=== PATIENT | female | born 1995 | race Caucasian/White ===

== ENCOUNTER 2021-01-05 17:56 | Emergency (ER) | payer OTHER ==
[2021-01-05] MEDS ORDERED: PROTONIX 40 MG IV IV ONE ×2 (20:04→20:46)
[2021-01-05] MEDS ORDERED: GI COCKTAIL 45 ML (Maalox/Lidocaine) PO ONE (20:04)
[2021-01-05 20:22] LABS: Absolute Neutrophil Ct (ANC) 4.19 (1.4-6.9); BASOPHIL % 0.3 % (0.0-0.4); Basophil (Absolute #) 0.02 (0-0.4); Eosinophil % 2.1 % (0.00-5.0); Eosinophil (Absolute #) 0.15 (0-0.5); Hematocrit 40.4 % (35-47); Hemoglobin 12.9 gm/dl (12.0-16.0); Lymphocyte (Absolute #) 1.92 (1.0-4.6); Lymphocytes % 26.7 % (24.0-44.0); Mean Corpuscular Hemoglobin 29.4 pg (26-32); Mean Corpuscular Hgb Concent. 31.9 g/dl (32-36); Mean Platelet Volume 9.4 fl (7.5-11.0); Monocyte (Absolute #) 0.92 (0.0-1.3); Monocytes % 12.8 % (0.0-12.0); Neutrophil % 58.1 % (36.0-66.0); Platelet Count 308 K/mm3 (150-450); Red Blood Count 4.39 M/mm3 (4.1-5.4); Red Cell Distribution Width 14.2 % (11.5-14.0); White Blood Count 7.2 K/mm3 (4.0-10.5)
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
[2021-01-05 20:28] LABS: ALBUMIN 4.1 g/dL (3.5-5.0); ALKALINE PHOSPHATASE 58 U/L (38-126); BLOOD UREA NITROGEN 17 mg/dL (7-17); CHLORIDE 105 mmol/L (98-107); Carbon Dioxide 25 mmol/L (22-30); Creatinine 1 0.59 mg/dL (0.52-1.04); EST GLOMERULAR FILTRATION RATE > 60.0 ML/MIN; Glucose 71 mg/dL (74-106); LIPASE 182 U/L (23-300); Potassium 3.7 mmol/L (3.5-5.1); SGOT/AST 26 U/L (14-36); SGPT/ALT 22 U/L (0-35); SODIUM 138 mmol/L (137-145); Total Protein 7.3 g/dL (6.3-8.2)
[2021-01-05] MEDS ORDERED: XYLOCAINE HCl Viscous ONE (20:47)
[2021-01-05] MEDS ORDERED: MAALOX ES 30 ML UNIT DOSE ONE (20:47)
[2021-01-05 21:19] VITALS: BP 132/85; PULSE 100; O2SAT 97
== END 2021-01-05 21:28 | disposition home or self-care (01) ==
LOC: ED 17:56
DX: R10.10 Upper abdominal pain, unspecified (principal)
CPT/HCPCS: 36000; 36415; 80053; 83690; 84703; 85025; 96374; 99284; A9270-GY

== ENCOUNTER 2022-07-19 16:24 | Observation (INO) | payer OTHER ==
[2022-07-19 17:04] VITALS: PULSE 98; O2SAT 97
[2022-07-19 18:08] VITALS: BP 126/78
== END 2022-07-19 17:45 | disposition home or self-care (01) ==
LOC: OB 16:24
PROVIDERS: ADMIT Obstetrics & Gynecology; ATTEND Obstetrics & Gynecology
DX: Z34.83 Encounter for supervision of other normal pregnancy, third trimester (principal); Z3A.38 38 weeks gestation of pregnancy
CPT/HCPCS: G0378

== ENCOUNTER 2022-07-21 02:00 | Inpatient (IN) | payer OTHER ==
[2022-07-21] MEDS ORDERED: TUCKS TP PRN (15:00)
[2022-07-21] MEDS ORDERED: LANSINOH 40 GM TOP PRN (15:00)
[2022-07-21 15:47] LABS: Absolute Neutrophil Ct (ANC) 6.02 x10^3/uL (1.4-6.9); BASOPHIL % 0.2 % (0.0-0.4); Basophil (Absolute #) 0.02 x10^3/uL (0-0.4); Eosinophil % 1.5 % (0.00-5.0); Eosinophil (Absolute #) 0.13 x10^3/uL (0-0.5); Hematocrit 30.4 % (35-47); Hemoglobin 9.5 g/dL (12.0-16.0); IMMATURE GRAN # 0.05 x10^3u/L (0.00-0.03); IMMATURE GRAN % 0.6 % (0.00-0.4); Lymphocyte (Absolute #) 1.84 x10^3/uL (1.0-4.6); Lymphocytes % 21.1 % (24.0-44.0); Mean Cell Volume 83.7 fL (78-100); Mean Corpuscular Hemoglobin 26.2 pg (26-32); Mean Corpuscular Hgb Concent. 31.3 g/dL (32-36); Monocyte (Absolute #) 0.67 x10^3/uL (0.0-1.3); Monocytes % 7.7 % (0.0-12.0); Neutrophil % 68.9 % (36.0-66.0); Platelet Count 344 x10^3/uL (150-450); Red Blood Count 3.63 x10^6/uL (4.1-5.4); White Blood Count 8.7 x10^3/uL (4.0-10.5)
[2022-07-21 16:08] LABS: Amphetamine,Urine NEGATIVE (NEGATIVE); Barbiturate,Urine NEGATIVE (NEGATIVE); Benzodiazepine,Urine NEGATIVE (NEGATIVE); Cocaine,Urine NEGATIVE (NEGATIVE); Methadone,Urine NEGATIVE (NEGATIVE); Opiate,Urine NEGATIVE (NEGATIVE); PCP,Urine NEGATIVE (NEGATIVE); THC,Urine NEGATIVE (NEGATIVE)
[2022-07-21 16:51] LABS: ABO TYPING A; RH TYPING NEGATIVE
[2022-07-21 16:52] LABS: Antibody Screen NEGATIVE (NEGATIVE)
[2022-07-21 17:38] LABS: ALBUMIN 3.3 g/dL (3.5-5.0); ALKALINE PHOSPHATASE 130 U/L (38-126); ANION GAP 12.7 MEQ/L (5-15); BLOOD UREA NITROGEN 11 mg/dL (7-17); CHLORIDE 108 mmol/L (98-107); Calcium 9.3 mg/dL (8.4-10.2); Carbon Dioxide 21 mmol/L (22-30); Creatinine 1 0.59 mg/dL (0.52-1.04); EST GLOMERULAR FILTRATION RATE > 60.0 ML/MIN; Glucose 79 mg/dL (74-106); SGOT/AST 29 U/L (14-36); SGPT/ALT 15 U/L (0-35); SODIUM 138 mmol/L (137-145); Total Protein 6.6 g/dL (6.3-8.2); Uric Acid 5.4 mg/dL (2.6-6.0)
[2022-07-21 18:06] LABS: Appearance Clear (Clear); Bacteria Rare /HPF (None Seen); Bilirubin Negative (Negative); Blood Negative (Negative); Epithelial Cells Few /HPF (None Seen); Glucose, Urine Negative (Negative); Hyaline Casts NONE SEEN /LPF (0-2); Ketones Trace (Negative); Leukocyte Esterase Small (Negative); Nitrite Negative (Negative); Protein,Urine Dip Trace (Negative); RBC 0-2 /HPF (0-5); Urobilinogen 0.2 mg/dL (0.2)
[2022-07-21 18:07] LABS: ADD URINE CULTURE? NO (NO)
[2022-07-21 18:53] LABS: Creatinine, Urine Random 136.1 mg/dl; Protein Creatinine Ratio, Ran. 0.09 mg/mg (0.0-0.15)
[2022-07-21] MEDS: TYLENOL EXTRA STRENGTH 500 MG PO PRN (20:06)
[2022-07-21] MEDS ORDERED: Ambien 10 MG PO PRN (20:45)
[2022-07-21] MEDS: MOTRIN 400 MG PO PRN (20:56)
[2022-07-21] MEDS: STADOL 2 MG IV PRN (23:01)
[2022-07-22] MEDS ORDERED: STADOL 2 MG IV PRN
[2022-07-22] MEDS ORDERED: Lactated Ringers 1,000 ML IV ONE
[2022-07-22] MEDS ORDERED: Ephedrine Sulfate 50 MG/ML IV PRN
[2022-07-22] MEDS ORDERED: Zofran 4 MG/2 ML VIAL IV PRN
[2022-07-22] MEDS ORDERED: FENTANYL 2 MCG-BUPIV 0.125%-NS 250 ML Epidur 250 ML EPIDURAL SCH
[2022-07-22] MEDS ORDERED: OMNIPEN 2 GM*** 2 G in Sodium Chloride 100ML MINI-BAG PLUS 100 ML IV ONE ×2
[2022-07-22] MEDS: STADOL 2 MG IV PRN (02:52)
[2022-07-22] MEDS: Lactated Ringers 1,000 ML IV SCH ×2 (03:14→20:37)
[2022-07-22] MEDS ORDERED: XYLOCAINE 1% HCL 20 ML MDV ONE (03:23)
[2022-07-22] MEDS ORDERED: XYLOCAINE 2%/Epi 1:200000 20ML VIAL MPF ONE (03:59)
[2022-07-22] MEDS ORDERED: SUBLIMAZE 100 MCG/2 ML ONE (03:59)
[2022-07-22] MEDS ORDERED: Marcaine 0.5%/Epinephrine 10 ML IJ ONE (04:00)
[2022-07-22] MEDS ORDERED: OMNIPEN 1 GM*** 1 GM in Sodium Chloride 100ML MINI-BAG PLUS 100 ML IV SCH (04:00)
[2022-07-22] MEDS ORDERED: PITOCIN 30 UNITS/ LR 500 ML 500 ML IV ONE (04:05)
[2022-07-22] MEDS ORDERED: OMNIPEN 1 GM ONE (04:10)
[2022-07-22] MEDS ORDERED: Sodium Chloride 100ML MINI-BAG PLUS 100 ML IV ONE (04:10)
[2022-07-22] MEDS ORDERED: PITOCIN 30 UNITS/ LR 500 ML 30 UNITS/500 ML PLAST..BAG IV SCH (08:00)
[2022-07-22] MEDS ORDERED: Dermoplast Spray TP PRN ×2 (08:20→08:45)
[2022-07-22] MEDS ORDERED: FERREX 150 PO SCH (10:00)
[2022-07-22] MEDS: MOTRIN 400 MG PO PRN ×2 (12:48→21:49)
[2022-07-22] MEDS ORDERED: Rhogam Plus 300 MCG IM ONE (15:00)
[2022-07-22] MEDS ORDERED: Adacel Vial IM ONE (15:00)
[2022-07-22 16:28] LABS: Absolute Neutrophil Ct (ANC) 13.23 x10^3/uL (1.4-6.9); BASOPHIL % 0.2 % (0.0-0.4); Basophil (Absolute #) 0.04 x10^3/uL (0-0.4); Eosinophil % 0.3 % (0.00-5.0); Eosinophil (Absolute #) 0.05 x10^3/uL (0-0.5); Hematocrit 31.7 % (35-47); IMMATURE GRAN # 0.08 x10^3u/L (0.00-0.03); IMMATURE GRAN % 0.5 % (0.00-0.4); Lymphocyte (Absolute #) 2.12 x10^3/uL (1.0-4.6); Lymphocytes % 12.9 % (24.0-44.0); Mean Cell Volume 83.4 fL (78-100); Mean Corpuscular Hemoglobin 26.3 pg (26-32); Mean Corpuscular Hgb Concent. 31.5 g/dL (32-36); Mean Platelet Volume 9.4 fL (7.5-11.0); Monocyte (Absolute #) 0.88 x10^3/uL (0.0-1.3); Monocytes % 5.4 % (0.0-12.0); Neutrophil % 80.7 % (36.0-66.0); Platelet Count 296 x10^3/uL (150-450); White Blood Count 16.4 x10^3/uL (4.0-10.5)
[2022-07-22] MEDS: Docusate Sodium 100 MG PO SCH (21:49)
[2022-07-23 05:12] LABS: Absolute Neutrophil Ct (ANC) 8.76 x10^3/uL (1.4-6.9); BASOPHIL % 0.4 % (0.0-0.4); Basophil (Absolute #) 0.05 x10^3/uL (0-0.4); Eosinophil % 1.3 % (0.00-5.0); Eosinophil (Absolute #) 0.17 x10^3/uL (0-0.5); Hematocrit 28.2 % (35-47); Hemoglobin 8.8 g/dL (12.0-16.0); IMMATURE GRAN # 0.07 x10^3u/L (0.00-0.03); IMMATURE GRAN % 0.5 % (0.00-0.4); Lymphocyte (Absolute #) 2.92 x10^3/uL (1.0-4.6); Lymphocytes % 22.6 % (24.0-44.0); Mean Cell Volume 84.2 fL (78-100); Mean Corpuscular Hemoglobin 26.3 pg (26-32); Mean Corpuscular Hgb Concent. 31.2 g/dL (32-36); Mean Platelet Volume 10.4 fL (7.5-11.0); Monocyte (Absolute #) 0.93 x10^3/uL (0.0-1.3); Monocytes % 7.2 % (0.0-12.0); Platelet Count 284 x10^3/uL (150-450); Red Blood Count 3.35 x10^6/uL (4.1-5.4); Red Cell Distribution Width 17.3 % (11.5-14.0); White Blood Count 12.9 x10^3/uL (4.0-10.5)
--- NOTE | 2022-07-23 07:51 | PCM.NOTE ---
Date and Time: 07/23/22 0749 Subjective Assessment: ppd 1 sp pt resting in bed and doing well ambulating and tolerating diet. vss afebrile abd; soft uterus; firm lochia; mild hgb; 8.8 a/p sp ppd 1 dc home tomorrow should fu office in 3 wks OBJECTIVE DATA Vital Signs: Vital Signs - 24 hr Temp Pulse Resp BP Pulse Ox 07/23/22 04:00 97.7 F 102 H 18 136/81 97 07/23/22 00:00 97.9 F 108 H 19 133/78 97 07/22/22 20:00 97.5 F 118 H 20 148/75 97 07/22/22 14:00 97.2 F 116 H 20 135/81 96 07/22/22 09:00 97.9 F 118 H 18 140/86 96 07/22/22 08:00 97.9 F 118 H 18 140/86 96 07/22/22 07:50 97.9 F 118 H 18 140/86 96 Pain Assessment - Last Documented Pain Intensity [Bilateral 2 Lower] Pain Intensity 1 Pain Scale Used 0-10 Pain Scale Intake and Output: Intake & Output 07/20/22 07/21/22 07/22/22 07/23/22 11:59 11:59 11:59 11:59 Intake Total 1999 2420 Output Total 400 200 Balance 1600 2220 Weight 139.253 kg Lab Results: Lab Results-Last 24 Hours 07/22/22 07/22/22 07/23/22 Range/Units 06:08 16:25 05:18 WBC 16.4 H 12.9 H (4.0-10.5) x10^3/uL RBC 3.80 L 3.35 L (4.1-5.4) x10^6/uL Hgb 10.0 L 8.8 L (12.0-16.0) g/dL Hct 31.7 L 28.2 L (35-47) % MCV 83.4 84.2 (78-100) fL MCH 26.3 26.3 (26-32) pg MCHC 31.5 L 31.2 L (32-36) g/dL RDW 17.0 H 17.3 H (11.5-14.0) % Plt Count 296 284 (150-450) x10^3/uL MPV 9.4 10.4 (7.5-11.0) fL Gran % 80.7 H 68.0 H (36.0-66.0) % Immature Gran % (Auto) 0.5 H 0.5 H (0.00-0.4) % Nucleat RBC Rel Count 0.0 0.0 (0.00-0.1) % Eos # (Auto) 0.05 0.17 (0-0.5) x10^3/uL Immature Gran # (Auto) 0.08 H 0.07 H (0.00-0.03) x10^3u/L Absolute Lymphs (auto) 2.12 2.92 (1.0-4.6) x10^3/uL Absolute Monos (auto) 0.88 0.93 (0.0-1.3) x10^3/uL Absolute Nucleated RBC 0.00 0.00 (0.00-0.01) x10^3u/L Lymphocytes % 12.9 L 22.6 L (24.0-44.0) % Monocytes % 5.4 7.2 (0.0-12.0) % Eosinophils % 0.3 1.3 (0.00-5.0) % Basophils % 0.2 0.4 (0.0-0.4) % Absolute Granulocytes 13.23 H 8.76 H (1.4-6.9) x10^3/uL Basophils # 0.04 0.05 (0-0.4) x10^3/uL Screen SEE SEPARATE REPORT Assessment/Plan (1) Vaginal delivery Current Visit: No Status: Acute Code(s): O80 - ENCOUNTER FOR FULL-TERM UNCOMPLICATED DELIVERY
--- NOTE | 2022-07-23 07:55 | PCM.DS ---
Discharge Summary Date of Admission: 07/22/22 02:00 Admitting Physician: MARLENI CEBALLOS DO Consults: Consults on Case 07/22/22 05:48 Notify Physician ROUTINE Primary Care Provider: MARLENI CEBALLOS DO Allergies Allergies No Known Drug Allergies Allergy (Verified 07/22/22 20:40) Hospital Summary - Hospital Course Hospital Course: pt admitted on july 21 for being 38 4/7 wks gestation with hx of gestational htn and gestational dm for induction with cytotec and subsequently delivered live baby boy without complication on july 22 live baby boy via without complication at 435 am. pt had been on labetolol 100mg bid prior to delivery however bp normalized after delivery and was not restarted on medication. pt was advised to restart once daily baby aspirin to take for 6 wks. pt at this time stable for discharge on july 24. pt noted having stable hgb at 8.8 and is on iron supplementation. pt advised to fu in office in 3 wks for care. all questions answered to her satisfaction. - Vitals & Intake/Output Vital Signs: Vital Signs Temperature 97.7 F 07/23/22 04:00 Pulse Rate 102 H 07/23/22 04:00 Respiratory Rate 18 07/23/22 04:00 Blood Pressure 136/81 07/23/22 04:00 O2 Sat by Pulse Oximetry 97 07/23/22 04:00 Intake & Output: Intake & Output 07/20/22 07/21/22 07/22/22 07/23/22 11:59 11:59 11:59 11:59 Intake Total 2000 2420 Output Total 400 200 Balance 1600 2220 Weight 139.253 kg - Lab Result Diagrams: 07/23/22 05:18 07/21/22 15:40 Lab Results-Last 24 Hrs: Lab Results-Last 24 Hours 07/22/22 07/22/22 07/23/22 Range/Units 06:08 16:25 05:18 WBC 16.4 H 12.9 H (4.0-10.5) x10^3/uL RBC 3.80 L 3.35 L (4.1-5.4) x10^6/uL Hgb 10.0 L 8.8 L (12.0-16.0) g/dL Hct 31.7 L 28.2 L (35-47) % MCV 83.4 84.2 (78-100) fL MCH 26.3 26.3 (26-32) pg MCHC 31.5 L 31.2 L (32-36) g/dL RDW 17.0 H 17.3 H (11.5-14.0) % Plt Count 296 284 (150-450) x10^3/uL MPV 9.4 10.4 (7.5-11.0) fL Gran % 80.7 H 68.0 H (36.0-66.0) % Immature Gran % (Auto) 0.5 H 0.5 H (0.00-0.4) % Nucleat RBC Rel Count 0.0 0.0 (0.00-0.1) % Eos # (Auto) 0.05 0.17 (0-0.5) x10^3/uL Immature Gran # (Auto) 0.08 H 0.07 H (0.00-0.03) x10^3u/L Absolute Lymphs (auto) 2.12 2.92 (1.0-4.6) x10^3/uL Absolute Monos (auto) 0.88 0.93 (0.0-1.3) x10^3/uL Absolute Nucleated RBC 0.00 0.00 (0.00-0.01) x10^3u/L Lymphocytes % 12.9 L 22.6 L (24.0-44.0) % Monocytes % 5.4 7.2 (0.0-12.0) % Eosinophils % 0.3 1.3 (0.00-5.0) % Basophils % 0.2 0.4 (0.0-0.4) % Absolute Granulocytes 13.23 H 8.76 H (1.4-6.9) x10^3/uL Basophils # 0.04 0.05 (0-0.4) x10^3/uL Screen SEE SEPARATE REPORT Final Diagnosis/Problem List - Final Discharge Diagnosis/Problem (1) Vaginal delivery Current Visit: No Status: Acute Code(s): O80 - ENCOUNTER FOR FULL-TERM UNCOMPLICATED DELIVERY - Discharge Disposition: Home, Self-Care Condition: Stable Prescriptions: No Action Metformin HCl 500 mg [Glucophage 500 MG] 500 mg PO BID Labetalol HCl 100 mg [Trandate 100 MG] 100 mg PO BID No122/Iron/Folic Acid [ Multi Tablet] 1 tab PO DAILY Follow up with: MARLENI CEBALLOS DO [Primary Care Provider] - 3 weeks
[2022-07-23] MEDS: BABY ASPIRIN 81 MG CHEW PO SCH (08:50)
[2022-07-23] MEDS: FEOSOL 325 MG PO SCH ×2 (08:50→21:48)
[2022-07-23] MEDS: Docusate Sodium 100 MG PO SCH ×2 (08:50→21:48)
[2022-07-23] MEDS: MOTRIN 400 MG PO PRN ×2 (10:20→21:47)
[2022-07-23 13:39] LABS: HBsAg Screen Negative (Negative)
[2022-07-24] MEDS: TYLENOL EXTRA STRENGTH 500 MG PO PRN (03:22)
[2022-07-24] MEDS: BABY ASPIRIN 81 MG CHEW PO SCH (08:48)
[2022-07-24] MEDS: FEOSOL 325 MG PO SCH (08:48)
[2022-07-24] MEDS: Docusate Sodium 100 MG PO SCH (08:48)
[2022-07-24 09:04] VITALS: BP 135/74; PULSE 93; O2SAT 98
== END 2022-07-24 12:20 | disposition home or self-care (01) | DRG 807 ==
LOC: OB 02:00 → OBSVTOIN 07-22 02:00
PROVIDERS: ADMIT Obstetrics & Gynecology; ATTEND Obstetrics & Gynecology
PROC: 10E0XZZ Delivery of Products of Conception, External Approach (ICD-10-PCS; principal; 2022-07-22)
PROC: 0HQ9XZZ Repair Perineum Skin, External Approach (ICD-10-PCS; 2022-07-22)
DX: O70.0 First degree perineal laceration during delivery (principal); Z37.0 Single live birth; O13.4 Gestational [pregnancy-induced] hypertension without significant proteinuria, complicating childbirth; O24.429 Gestational diabetes mellitus in childbirth, unspecified control; Z3A.38 38 weeks gestation of pregnancy; Z20.828 Contact with and (suspected) exposure to other viral communicable diseases
CPT/HCPCS: 36415; 59409; 80053; 80307; 81001; 82570; 84156; 84550; 85025; 85461; 86850; 86900; 86901; 87340; 90471; 90715; 96372; G0378; J0290; J0595; J2590; J2790; J3010; A9270-GY

== ENCOUNTER 2022-07-29 09:32 | Emergency (ER) | payer OTHER ==
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
[2022-07-29 10:39] LABS: Absolute Neutrophil Ct (ANC) 9.35 x10^3/uL (1.4-6.9); BASOPHIL % 0.3 % (0.0-0.4); Basophil (Absolute #) 0.04 x10^3/uL (0-0.4); Eosinophil % 1.1 % (0.00-5.0); Eosinophil (Absolute #) 0.13 x10^3/uL (0-0.5); Hematocrit 29.4 % (35-47); Hemoglobin 9.1 g/dL (12.0-16.0); IMMATURE GRAN # 0.12 x10^3u/L (0.00-0.03); Lymphocyte (Absolute #) 1.68 x10^3/uL (1.0-4.6); Lymphocytes % 13.8 % (24.0-44.0); Monocyte (Absolute #) 0.83 x10^3/uL (0.0-1.3); Monocytes % 6.8 % (0.0-12.0); Platelet Count 386 x10^3/uL (150-450); Red Cell Distribution Width 17.9 % (11.5-14.0); White Blood Count 12.2 x10^3/uL (4.0-10.5)
[2022-07-29 10:53] LABS: ALBUMIN 3.4 g/dL (3.5-5.0); ALKALINE PHOSPHATASE 101 U/L (38-126); AMYLASE 56 U/L (30-110); ANION GAP 12.8 MEQ/L (5-15); BLOOD UREA NITROGEN 9 mg/dL (7-17); CHLORIDE 106 mmol/L (98-107); Carbon Dioxide 24 mmol/L (22-30); Creatinine 1 0.72 mg/dL (0.52-1.04); EST GLOMERULAR FILTRATION RATE > 60.0 ML/MIN; Glucose 105 mg/dL (74-106); LIPASE 66 U/L (23-300); Potassium 3.5 mmol/L (3.5-5.1); SGOT/AST 31 U/L (14-36); SGPT/ALT 35 U/L (0-35); SODIUM 140 mmol/L (137-145); Total Protein 6.5 g/dL (6.3-8.2)
[2022-07-29 10:59] LABS: Appearance Turbid (Clear); Bacteria Few /HPF (None Seen); Bilirubin Negative (Negative); Blood Large (Negative); Epithelial Cells Moderate /HPF (None Seen); Glucose, Urine Negative (Negative); Hyaline Casts NONE SEEN /LPF (0-2); Ketones Negative (Negative); Leukocyte Esterase Large (Negative); Nitrite Negative (Negative); Ph 5.5 (4.6-8.0); Protein,Urine Dip 100 (Negative); RBC >100 /HPF (0-5); Specific Gravity 1.015 (1.005-1.030); Urobilinogen 0.2 mg/dL (0.2); WBC >100 /HPF (0-5)
[2022-07-29 11:00] LABS: ADD URINE CULTURE? YES (NO)
--- NOTE | 2022-07-29 11:36 | XRAY ---
Indication: Bilateral lower quadrant pain with standing and walking. Status post one week vaginal delivery. Multiple contiguous axial images obtained through the abdomen and pelvis without contrast. Comparison: None Lung bases demonstrates incompletely visualized small right and tiny left effusions with minimal compressive atelectasis. Heart not enlarged with small left infrahilar calcified node. Small hiatal hernia. Noncontrasted stomach and bowel loops appear nonobstructed. Enlarged placenta with surrounding stranding and tiny free fluid consistent with recent gravid status. No walled off fluid collection or free air. Hepatomegaly measuring 20.3 cm and splenomegaly measuring 12.8 cm. Nonobstructing right renal punctate calculus. Remaining liver, gallbladder, pancreas, spleen, adrenal glands, kidneys, ureters, bladder, and aorta are unremarkable for noncontrast exam. Osseous structures intact. No ventral or inguinal hernias. Impression: 1. Enlarged uterus consistent with recent gravid status. No complications. 2. Small right and tiny left effusions without cardiomegaly 3. Incidental hepatosplenomegaly, small hiatal hernia, and nonobstructing right renal punctate calculus.
[2022-07-29] MEDS ORDERED: Sodium Chloride 0.9% 1000 ML 1,000 ML IV STA (11:45)
[2022-07-29] MEDS ORDERED: ROCEPHIN 1 Gm-D5w 50 ml Bag** 1 G/50 ML IVPB IV STA (11:45)
[2022-07-29] MEDS ORDERED: Sodium Chloride 0.9% 1000 ML 1,000 ML ONE (11:48)
[2022-07-29] MEDS ORDERED: ROCEPHIN 1 Gm-D5w 50 ml Bag** 1 G/50 ML IVPB IV ONE (11:48)
[2022-07-29] MEDS ORDERED: Sodium Chloride 0.9% 500 ML 500 ML IV ONE ×2 (11:51→12:00)
[2022-07-29 12:04] VITALS: BP 157/101; PULSE 95
[2022-07-29 12:42] VITALS: O2SAT 96
[2022-07-31] MEDS ORDERED: Macrobid 100MG Capsule PO SCH (10:00)
== END 2022-07-29 12:55 | disposition home or self-care (01) ==
LOC: ED 09:32
DX: O86.20 Urinary tract infection following delivery, unspecified (principal); N39.0 Urinary tract infection, site not specified; R10.31 Right lower quadrant pain; R10.32 Left lower quadrant pain
CPT/HCPCS: 36000; 36415; 74176; 80053; 81001; 82150; 83690; 85025; 87077; 87086; 87186; 96360; 96365; 99284; J0696

== ENCOUNTER 2022-08-02 23:26 | Observation (INO) | payer OTHER ==
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
[2022-08-02] MEDS ORDERED: TRANDATE 20 MG/4 ML SYRINGE IV ONE ×2 (23:46→23:55)
[2022-08-02] MEDS ORDERED: Magnesium 1 Gm / 100 Ml D5W*** 200 ML IV ONE (23:55)
[2022-08-02] MEDS: Magnesium 1 Gm / 100 Ml D5W*** 100 ML IV SCH (23:56)
[2022-08-02 23:58] LABS: Absolute Neutrophil Ct (ANC) 5.59 x10^3/uL (1.4-6.9); BASOPHIL % 0.5 % (0.0-0.4); Basophil (Absolute #) 0.05 x10^3/uL (0-0.4); Eosinophil % 3.4 % (0.00-5.0); Eosinophil (Absolute #) 0.34 x10^3/uL (0-0.5); Hematocrit 29.5 % (35-47); IMMATURE GRAN # 0.09 x10^3u/L (0.00-0.03); IMMATURE GRAN % 0.9 % (0.00-0.4); Lymphocyte (Absolute #) 3.17 x10^3/uL (1.0-4.6); Lymphocytes % 31.9 % (24.0-44.0); Mean Cell Volume 84.5 fL (78-100); Mean Corpuscular Hemoglobin 25.8 pg (26-32); Mean Corpuscular Hgb Concent. 30.5 g/dL (32-36); Mean Platelet Volume 8.8 fL (7.5-11.0); Monocyte (Absolute #) 0.71 x10^3/uL (0.0-1.3); Monocytes % 7.1 % (0.0-12.0); NUCLEATED RBC # 0.02 x10^3u/L (0.00-0.01); NUCLEATED RBC % 0.2 % (0.00-0.1); Neutrophil % 56.2 % (36.0-66.0); Platelet Count 343 x10^3/uL (150-450); Red Blood Count 3.49 x10^6/uL (4.1-5.4); Red Cell Distribution Width 17.5 % (11.5-14.0)
[2022-08-03 00:39] LABS: ALBUMIN 3.6 g/dL (3.5-5.0); ALKALINE PHOSPHATASE 104 U/L (38-126); BLOOD UREA NITROGEN 12 mg/dL (7-17); CHLORIDE 108 mmol/L (98-107); Calcium 8.5 mg/dL (8.4-10.2); Carbon Dioxide 26 mmol/L (22-30); Creatinine 1 0.79 mg/dL (0.52-1.04); EST GLOMERULAR FILTRATION RATE > 60.0 ML/MIN; Glucose 93 mg/dL (74-106); MAGNESIUM 1.9 mg/dL (1.6-2.3); Potassium 3.6 mmol/L (3.5-5.1); SGOT/AST 30 U/L (14-36); SGPT/ALT 19 U/L (0-35); SODIUM 140 mmol/L (137-145); Total Protein 6.7 g/dL (6.3-8.2)
[2022-08-03 00:45] LABS: CREATININE,URINE RANDOM 40.4 MG/DL
[2022-08-03 00:46] LABS: ADD URINE CULTURE? YES (NO); Appearance Turbid (Clear); Bacteria None Seen /HPF (None Seen); Bilirubin Small (Negative); Blood Large (Negative); Epithelial Cells Rare /HPF (None Seen); Glucose, Urine Negative (Negative); Ketones Negative (Negative); Leukocyte Esterase Large (Negative); Nitrite Negative (Negative); Ph 7.5 (4.6-8.0); Protein,Urine Dip 100 (Negative); RBC >100 /HPF (0-5); Specific Gravity 1.015 (1.005-1.030); Urobilinogen 0.2 mg/dL (0.2); WBC >100 /HPF (0-5)
[2022-08-03 01:14] LABS: INFLUENZA A NEGATIVE (NEGATIVE); INFLUENZA B NEGATIVE (NEGATIVE); RESPIRATORY SYNCTIAL VIRUS NEGATIVE (NEGATIVE); SARS-CoV-2 Xpert Express NEGATIVE (NEGATIVE)
[2022-08-03] MEDS: Magnesium 1 Gm / 100 Ml D5W*** 100 ML IV SCH ×2 (01:59→02:45)
[2022-08-03 02:53] LABS: INR 0.95 (0.8-3.0); PROTIME 10.4 SECONDS (9.4-12.5); PTT 26.8 SECONDS (25.1-36.5)
[2022-08-03] MEDS ORDERED: Magnesium Sulfate 40 Gm/1000 Ml H2O Premix*** 1,000 ML IV SCH (03:00)
[2022-08-03] MEDS: Lactated Ringers 1,000 ML IV SCH ×2 (03:21→16:46)
[2022-08-03] MEDS: TYLENOL 325 MG PO PRN ×4 (04:53→22:05)
[2022-08-03 05:08] LABS: Absolute Neutrophil Ct (ANC) 5.46 x10^3/uL (1.4-6.9); BASOPHIL % 0.5 % (0.0-0.4); Basophil (Absolute #) 0.05 x10^3/uL (0-0.4); Eosinophil % 3.7 % (0.00-5.0); Eosinophil (Absolute #) 0.37 x10^3/uL (0-0.5); Hematocrit 28.8 % (35-47); Hemoglobin 8.9 g/dL (12.0-16.0); IMMATURE GRAN # 0.08 x10^3u/L (0.00-0.03); IMMATURE GRAN % 0.8 % (0.00-0.4); Lymphocyte (Absolute #) 3.19 x10^3/uL (1.0-4.6); Lymphocytes % 32.3 % (24.0-44.0); Mean Cell Volume 83.5 fL (78-100); Mean Corpuscular Hemoglobin 25.8 pg (26-32); Mean Corpuscular Hgb Concent. 30.9 g/dL (32-36); Mean Platelet Volume 9.4 fL (7.5-11.0); Monocyte (Absolute #) 0.72 x10^3/uL (0.0-1.3); Monocytes % 7.3 % (0.0-12.0); Neutrophil % 55.4 % (36.0-66.0); Platelet Count 371 x10^3/uL (150-450); Red Blood Count 3.45 x10^6/uL (4.1-5.4); White Blood Count 9.9 x10^3/uL (4.0-10.5)
[2022-08-03 05:25] LABS: ALBUMIN 3.6 g/dL (3.5-5.0); ALKALINE PHOSPHATASE 107 U/L (38-126); ANION GAP 10.9 MEQ/L (5-15); BLOOD UREA NITROGEN 9 mg/dL (7-17); CHLORIDE 108 mmol/L (98-107); Calcium 8.5 mg/dL (8.4-10.2); Carbon Dioxide 24 mmol/L (22-30); EST GLOMERULAR FILTRATION RATE > 60.0 ML/MIN; Glucose 98 mg/dL (74-106); Potassium 3.3 mmol/L (3.5-5.1); SGOT/AST 25 U/L (14-36); SGPT/ALT 19 U/L (0-35); SODIUM 140 mmol/L (137-145); Total Protein 6.7 g/dL (6.3-8.2)
[2022-08-03] MEDS ORDERED: Trandate 100 MG PO ONE (08:02)
[2022-08-03] MEDS ORDERED: Lasix 20 MG/2 ML IV ONE (08:04)
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
[2022-08-03] MEDS ORDERED: PROCARDIA 10 MG PO ONE (11:24)
[2022-08-03] MEDS: MOTRIN 600 MG PO PRN (15:35)
[2022-08-03] MEDS: Trandate 100 MG PO SCH ×2 (21:08→21:54)
[2022-08-04] MEDS ORDERED: PROCARDIA 10 MG PO ONE (00:18)
[2022-08-04] MEDS: Lactated Ringers 1,000 ML IV SCH (01:40)
[2022-08-04] MEDS: MOTRIN 600 MG PO PRN (03:17)
--- NOTE | 2022-08-04 07:56 | PCM.NOTE ---
Date and Time: 08/04/22 0753 Subjective Assessment: pt resting in bed and states feeling better after coming off magsulfate. denies headache at this time. pt had bp meds adjusted throughout the day yesterday. vss afebrile abd; soft a/p sp with preeclampsia magsulfate discontinued will continue with labetolol 200mg bid and will adjust procardia to procardia xl 30mg today to be given at noon will anticipate discharge tomorrow OBJECTIVE DATA Vital Signs: Vital Signs - 24 hr Temp Pulse Resp BP BP Pulse Ox 08/04/22 06:45 98.1 F 102 H 18 144/80 08/04/22 05:00 95 H 16 122/68 98 08/04/22 03:00 97.9 F 92 H 18 128/53 97 08/04/22 01:00 97.7 F 91 H 18 140/60 96 08/04/22 00:00 98.1 F 92 H 18 156/76 96 08/03/22 23:00 98.1 F 98 H 16 150/80 150/80 96 08/03/22 22:00 97.7 F 95 H 16 156/68 156/68 98 08/03/22 21:00 97.6 F 96 H 18 154/76 154/76 97 08/03/22 19:58 97 H 130/62 08/03/22 18:55 92 H 138/74 08/03/22 18:00 95 H 142/72 08/03/22 17:00 90 126/72 08/03/22 16:00 79 142/78 08/03/22 15:00 93 H 138/78 08/03/22 14:00 87 145/86 08/03/22 13:00 88 157/94 08/03/22 12:00 86 165/98 08/03/22 11:00 89 163/89 08/03/22 10:00 81 137/75 08/03/22 09:00 94 H 166/99 08/03/22 08:30 84 161/79 Pain Assessment - Last Documented Pain Intensity 0 Pain Scale Used 0-10 Pain Scale Intake and Output: Intake & Output 08/01/22 08/02/22 08/03/22 08/04/22 11:59 11:59 11:59 11:59 Intake Total 1899 2682 Output Total 3800 2400 Balance -1901 282 Weight 128.593 kg Lab Results: Lab Results-Last 24 Hours 08/03/22 08/03/22 08/03/22 Range/Units 08:30 15:19 20:55 Magnesium 5.0 H 6.0 H* 6.7 H* (1.6-2.3) mg/dL 08/04/22 Range/Units 03:10 Magnesium 4.1 H (1.6-2.3) mg/dL Assessment/Plan (1) Pre-eclampsia, Current Visit: Yes Status: Acute Code(s): O14.95 - UNSPECIFIED PRE- ECLAMPSIA, COMPLICATING THE PUERPERIUM (2) hypertension Current Visit: Yes Status: Acute Code(s): O16.5 - UNSPECIFIED MATERNAL HYPERTENSION, COMP THE PUERPERIUM
[2022-08-04] MEDS ORDERED: Lasix 20 MG/2 ML IV ONE (08:30)
[2022-08-04] MEDS: Trandate 100 MG PO SCH ×2 (10:27→21:56)
[2022-08-04] MEDS ORDERED: Adalat CC 30 MG TABLET PO ONE (12:00)
[2022-08-05 04:35] VITALS: PULSE 96
--- NOTE | 2022-08-05 07:51 | PCM.NOTE ---
Date and Time: 08/05/22747 Subjective Assessment: pt resting in bed and doing well at this time and denies headache for visual disturbance. pt currently on labetolol bid and procardia once daily and doing very well vss afebrile abd; soft a/p sp with preeclampsia resolving will dc home today on labetolol 200mg bid and procardia 30mg xl once daily should fu in office in 2 wks OBJECTIVE DATA Vital Signs: Vital Signs - 24 hr Temp Pulse Resp BP Pulse Ox 08/05/22 04:00 98.5 F 96 H 20 128/70 95 08/05/22 00:00 99.3 F 88 20 130/76 08/04/22 22:00 98.3 F 109 H 18 138/78 99 08/04/22 21:00 97.8 F 102 H 18 130/62 100 08/04/22 18:00 102 H 18 140/68 100 08/04/22 14:53 90 18 118/76 99 08/04/22 11:00 97.5 F 94 H 18 126/66 96 Pain Assessment - Last Documented Pain Intensity 0 Pain Scale Used 0-10 Pain Scale Intake and Output: Intake & Output 08/02/22 08/03/22 08/04/22 08/05/22 11:59 11:59 11:59 11:59 Intake Total 1899 3072 350 Output Total 3800 3500 1700 Balance -1901 -428 -1350 Weight 128.593 kg Assessment/Plan (1) Pre-eclampsia, Current Visit: Yes Status: Acute Code(s): O14.95 - UNSPECIFIED PRE- ECLAMPSIA, COMPLICATING THE PUERPERIUM (2) hypertension Current Visit: Yes Status: Acute Code(s): O16.5 - UNSPECIFIED MATERNAL H YPERTENSION, COMP THE PUERPERIUM
--- NOTE | 2022-08-05 07:58 | PCM.DS ---
Discharge Summary Date of Admission: 08/03/22 01:44 Admitting Physician: MARLENI CEBALLOS DO Consults: Consults on Case 08/03/22 01:51 Notify Physician ROUTINE Primary Care Provider: MP DICKENS Allergies Allergies No Known Drug Allergies Allergy (Verified 07/22/22 20:40) Hospital Summary - Hospital Course Hospital Course: pt admitted on august 03 sp on july 22 with subsequent preeclampsia seen in er with headache and elevated bp with significant proteinuria at time of admission. pt was then started on magso4 4 gm bolus and 2gm hr for 22 hrs and discontinued. pt was placed on labetolol 200mg at 9 pm and 9 am with procardia xl 30mg given at noon time with excellent control of her blood pressure. at this time denies headache or visual disturbance and stable for discharge at this time. pt advised to fu in 2 wks for care. all questions answered to her satisfaction. - Vitals & Intake/Output Vital Signs: Vital Signs Temperature 98.5 F 08/05/22 04:00 Pulse Rate 96 H 08/05/22 04:00 Respiratory Rate 20 08/05/22 04:00 Blood Pressure 128/70 08/05/22 04:00 O2 Sat by Pulse Oximetry 95 08/05/22 04:00 Intake & Output: Intake & Output 08/02/22 08/03/22 08/04/22 08/05/22 11:59 11:59 11:59 11:59 Intake Total 1899 3072 350 Output Total 3800 3500 1700 Balance -1901 -428 -1350 Weight 128.593 kg - Lab Result Diagrams: 08/03/22 04:22 08/03/22 04:22 Micro Results-Entire Visit: Microbiology 08/03/22 00:25 Urine Culture - Final Clean Catch Midstream <10K NORMAL SKIN JASON PROBABLE SKIN CONTAMINANT Final Diagnosis/Problem List - Final Discharge Diagnosis/Problem (1) Pre-eclampsia, Current Visit: Yes Status: Acute Code(s): O14.95 - UNSPECIFIED PRE- ECLAMPSIA, COMPLICATING THE PUERPERIUM (2) hypertension Current Visit: Yes Status: Acute Code(s): O16.5 - UNSPECIFIED MATERNAL HYPERTENSION, COMP THE PUERPERIUM - Discharge Disposition: Home, Self-Care Condition: Stable Prescriptions: No Action clindamycin HCL [Clindamycin HCl] 300 mg PO TID 7 Days #21 cap Nitrofurantoin Monohyd/M-Cryst [Macrobid 100 mg Capsule] 100 mg PO BID 5 Days #10 cap Follow up with: MP DICKENS NP [Primary Care Provider] - MARLENI CEBALLOS DO [ACTIVE STAFF] - 2 weeks
[2022-08-05 07:59] VITALS: BP 122/80; O2SAT 96
[2022-08-05] MEDS: Trandate 100 MG PO SCH (09:52)
== END 2022-08-05 11:10 | disposition home or self-care (01) ==
LOC: ED 23:26 → MED SURG 08-03 01:44
PROVIDERS: ADMIT Obstetrics & Gynecology; ATTEND Obstetrics & Gynecology
DX: R03.0 Elevated blood-pressure reading, without diagnosis of hypertension (principal); O90.89 Other complications of the puerperium, not elsewhere classified; Z20.828 Contact with and (suspected) exposure to other viral communicable diseases; Z79.899 Other long term (current) drug therapy
CPT/HCPCS: 0241U; 36000; 36415; 80053; 81001; 82570; 83735; 84156; 85025; 85610; 85730; 87086; 93005; 93041; 96374; 99285; G0378; J1940; J3475; A9270-GY

== ENCOUNTER 2023-10-24 10:11 | Day surgery (SDC) | payer OTHER ==
--- NOTE | 2023-10-24 07:34 | HP ---
HISTORY AND PHYSICAL HISTORY OF PRESENT ILLNESS: A 28-year-old with epigastric and chronic colicky pain since April. No nausea or vomiting, per patient, worse with greasy foods. Ultrasound showed gallstones. PAST SURGICAL HISTORY: Had left finger surgery in the past. PAST MEDICAL HISTORY: Denied any chronic illnesses. MEDICATIONS: None on a regular basis. ALLERGIES: No known drug allergies. SOCIAL HISTORY: No smoking or alcohol abuse. FAMILY HISTORY: Negative. REVIEW OF SYSTEMS: Twelve systems reviewed. No chest pain or palpitations. Other systems negative as above and per preadmission questionnaire. PHYSICAL EXAMINATION: GENERAL: Height 5 feet 3 inches, BMI 42.5. No acute distress. HEENT: Sclerae nonicteric. NECK: No JVD. CARDIOVASCULAR: Regular rate and rhythm. RESPIRATORY: Equal excursion, nonlabored breathing. ABDOMEN: Soft, nontender at office visit. EXTREMITIES: No cyanosis or edema. NEUROLOGIC: Alert and oriented, moving extremities symmetrically. PSYCHIATRIC: Appropriate mood and affect. IMPRESSION: History of epigastric and right upper quadrant pain, gallstones. Acute exacerbation of chronic cholecystitis, cholelithiasis. Recommend cholecystectomy. Shown the pamphlet and risk sheet. Risks including but not limited to bleeding or infection, risk of trocar injury or hernia, risk of bile leak or bile duct injury, retained stone or sludge possibly requiring further ERCP or open procedure, risk of anesthesia, DVT, PE, pneumonia, risks of aches and pains, bloating, constipation, or loose stools possibly chronic in nature, possibility of no improvement in preoperative symptoms possibly requiring workup, or other studies or endoscopy or other referrals. Patient understands and agrees with planned procedure. We will proceed with lap yoanna or possible open under general anesthesia as an outpatient.
[2023-10-24] MEDS ORDERED: MEFOXIN 2 GM PREMIX** 2 GM/50 ML ML IV ONE (10:25)
[2023-10-24] MEDS ORDERED: Lactated Ringers 1,000 ML IV ONE (10:26)
[2023-10-24 10:52] VITALS: RESP 16
[2023-10-24] MEDS: Lactated Ringers 1,000 ML IV SCH (11:02)
[2023-10-24] MEDS: MEFOXIN 2 GM PREMIX** 2 GM/50 ML ML IV SCH (11:02)
[2023-10-24 11:04] LABS: HCG URINE TEST NEGATIVE (NEGATIVE)
[2023-10-24] MEDS ORDERED: Zofran 4 MG/2 ML VIAL ONE (12:47)
[2023-10-24] MEDS ORDERED: ROCURONIUM BROMIDE IV ONE (12:47)
[2023-10-24] MEDS ORDERED: Decadron 4 MG INJ ONE (12:47)
[2023-10-24] MEDS ORDERED: DIPRIVAN 200 MG/20 ML IV ONE (12:47)
[2023-10-24] MEDS ORDERED: SUBLIMAZE 100 MCG/2 ML ONE ×2 (12:53→13:35)
[2023-10-24] MEDS ORDERED: BRIDION 200MG/2ML IV ONE (13:14)
[2023-10-24] MEDS ORDERED: TORAdol 30 mg Injection ONE (13:14)
[2023-10-24] MEDS ORDERED: Hydromorphone 1 mg/ml Injection ONE (13:36)
[2023-10-24 14:43] VITALS: BP 129/78; PULSE 73; TEMP 98.5; O2SAT 100
--- NOTE | 2023-10-25 14:38 | OP ---
SURGERY DATE/TIME: 10/24/2023 7914 - 8820 PREOPERATIVE DIAGNOSIS: Acute exacerbation chronic cholecystitis with symptomatic cholelithiasis. POSTOPERATIVE DIAGNOSIS: Acute exacerbation of chronic cholecystitis with symptomatic cholelithiasis. PROCEDURE: Laparoscopic cholecystectomy. SURGEON: Hugo Castaneda MD ANESTHESIA: General. ESTIMATED BLOOD LOSS: Minimal. INDICATIONS: As noted above. Risks and benefits were explained in detail. Consent obtained. DESCRIPTION OF PROCEDURE AND FINDINGS: The patient was taken to the OR. General anesthesia was induced. The patient was prepped and draped in the usual sterile fashion. After official time-out, no disagreement in planned procedure. Transverse incision made at the supraumbilical area. Fascia grasped and pulled upward. Veress needle inserted. Tested with saline. Pneumoperitoneum accomplished insufflating from opening pressure of 0-15. A 5 mm bladeless port and camera inserted without difficulty followed by two 5 mm right upper quadrant ports and an 11 mm epigastric port. The gallbladder was grasped. It had some chronic inflammation around it. Dissected posterior, lateral to anterior fashion slowly and carefully cystic duct and infundibular junction slowly and carefully well skeletonized so the critical view was obtained anteriorly and posteriorly. Once this was accomplished, cystic duct/cystic artery clipped x3 and divided in the usual fashion. The gallbladder was slowly, carefully dissected free from its dense attachments to the liver bed. Staying directly on the gallbladder wall clipping additional oozing side branches off the cystic artery/cystic vein directly along the gallbladder wall as necessary. Just prior to releasing from final attachments to the anterior edge liver, the liver bed reinspected. The clips were noted to be in place in the cystic duct/cystic artery stumps. No signs of any active bleeding or bile leakage. [place] there was no benefit of any drain placement. The gallbladder was released from the final attachments to the anterior edge of the liver, placed in a sac, and pulled up, decompressed of a little bile and pulled free and passed off. A copious amount of irrigation lateral to the liver and subhepatic space irrigated clear. Clips were noted to be in place in cystic duct/cystic artery stumps. It was felt there was no benefit in drain placement. At this point, the 10-11 fascial defect closed with puncture closure device with #1 Vicryl. Pneumoperitoneum decompressed. Wounds irrigated out. Skin incision closed with 4-0 Vicryl. Steri-Strips and sterile dressing applied. The patient tolerated the procedure well. There were no immediate complications. Findings were discussed with the family out in the waiting area.
== END 2023-10-24 15:05 | disposition home or self-care (01) ==
LOC: SDC 10:11
PROVIDERS: ATTEND Surgery
DX: K81.2 Acute cholecystitis with chronic cholecystitis (principal)
CPT/HCPCS: 81025; J0694; J1100; J1170; J1885; J2405; J2704; J3010